=== PATIENT | male | born 1990 | race Caucasian/White ===

== ENCOUNTER 2021-04-21 13:10 | Emergency (ER) | payer SELFPAY ==
[~2021-04-21] VITALS: Ht 167.6 cm; Wt 59.1 kg
[2021-04-21 13:30] VITALS: TEMP 97.5
[2021-04-21 13:52] LABS: BASO # 0.1 (0.0-0.2); BASO % 0.5 % (0.0-2.0); EOS # 0.1 (0.0-0.7); EOS % 0.3 % (0-4.0); GRAN # 17.9 (1.4-6.5); GRAN % 83.9 % (42.2-75.2); HEMATOCRIT 47.1 % (42.0-52.0); HEMOGLOBIN 16.4 g/dl (13.5-18.0); LYMPH % 9.3 % (20.0-51.0); MEAN CELL VOLUME 89 fl (80.0-100.0); MEAN CORPUSCULAR HEMOGLOBIN 31 pg (27.0-31.0); MEAN CORPUSCULAR HGB CONC 35 g/dl (33.0-37.0); MEAN PLATELET VOLUME 10.4 fl (7.4-10.4); MONO # 1.2 (0.1-0.6); MONO % 5.6 % (1.7-9.3); PLATELET COUNT 269 K/mm3 (130-400); RED BLOOD COUNT 5.31 M/mm3 (4.20-5.60); REDCELL DISTRIBUTION WIDTH-CV 12.8 % (11.5-14.5)
[2021-04-21 14:03] LABS: ALBUMIN 4.4 gm/dL (3.5-5.0); BILIRUBIN,TOTAL 0.5 mg/dL (0.0-1.0); CALCIUM 9.4 mg/dL (8.4-10.2); CREATININE, serum 0.91 (0.66-1.25); POTASSIUM 3.8 mmol/L (3.4-5.0); TOTAL PROTEIN 7.4 gm/dL (6.4-8.2)
[2021-04-21] MEDS ORDERED: PHENERGAN 25 TA25 MG PO (16:01)
[2021-04-21 16:11] VITALS: BP 140/80; PULSE 49
== END 2021-04-21 16:43 | disposition home or self-care (01) ==
LOC: COL.ER 13:10
PROVIDERS: Personal Emergency Response Attendant
DX: R11.2 Nausea with vomiting, unspecified (principal); D72.829 Elevated white blood cell count, unspecified; F17.210 Nicotine dependence, cigarettes, uncomplicated; Z20.822 Contact with and (suspected) exposure to COVID-19
CPT/HCPCS: J1790; J2405; J7030

== ENCOUNTER 2022-05-29 11:30 | Emergency (ER) | payer SELFPAY ==
[~2022-05-29] VITALS: Ht 167.6 cm; Wt 59.1 kg
[~2022-05-29 11:30] MED LIST: PHENERGAN 25 TA25 MG PO
[2022-05-29 11:57] VITALS: BP 114/81; TEMP 97.9
[2022-05-29] MEDS ORDERED: CEPHALEXIN500 M1 PO (13:52)
[2022-05-29 14:15] VITALS: PULSE 105
== END 2022-05-29 14:15 | disposition home or self-care (01) ==
LOC: COL.ER 11:30
DX: M79.5 Residual foreign body in soft tissue (principal); F17.210 Nicotine dependence, cigarettes, uncomplicated; Z28.310 Unvaccinated for COVID-19; Z23 Encounter for immunization